=== PATIENT | female | born 1950 | race Caucasian/White ===

== ENCOUNTER 2022-08-02 16:37 | Emergency (ER) | payer OTHER, MEDICARE ==
[2022-08-02 17:07] VITALS: BP 130/70; PULSE 68; RESP 20; BMI 27.4
[2022-08-02] MEDS ORDERED: SODIUM CHLORIDE 0.9% 500 ML INFUS.BAG IV ONE (17:12)
[2022-08-02 18:02] LABS: BASO % 0.5 % (0-2.0); EOS % 0.4 % (0-4.5); HEMATOCRIT 45.7 % (32.4-45.2); HEMOGLOBIN 15.3 GM/dL (10.7-15.3); LYMPH % 12.1 % (8-40); MCH 29.5 pg (25.7-33.7); MCHC 33.4 g/dl (32.0-36.0); MEAN CELL VOLUME 88.2 fl (80-96); MEAN PLT VOLUME 9.3 fl (7.5-11.1); MONO % 8.6 % (3.8-10.2); NEUT % 78.4 % (42.8-82.8); PLATELET COUNT 316 10^3/uL (134-434); RBC 5.18 M/mm3 (3.60-5.2); RDW 12.9 % (11.6-15.6)
[2022-08-02 18:23] LABS: CALCIUM 9.9 mg/dL (8.5-10.1)
[2022-08-02 18:24] LABS: ALBUMIN 4.5 g/dl (3.4-5.0); MAGNESIUM 2.2 mg/dL (1.8-2.4)
[2022-08-02 18:27] LABS: CREATININE 1.7 mg/dL (0.55-1.3)
[2022-08-02 18:29] LABS: BILIRUBIN,TOTAL 0.9 mg/dL (0.2-1); TOT PROT 7.5 g/dl (6.4-8.2)
[2022-08-02 21:49] LABS: BLOOD UREA NITROGEN 19.4 mg/dL (7-18)
[2022-08-02 21:52] LABS: CREATININE 1.3 mg/dL (0.55-1.3)
== END 2022-08-02 22:27 | disposition home or self-care (01) ==
LOC: JER 16:37 → SUPCPDRO 16:37 → JER 22:27
DX: N17.9 Acute kidney failure, unspecified (principal); R55 Syncope and collapse
CPT/HCPCS: 0241U-QW; 36415; 70450-TC; 71045-TC-FY; 80048; 80053; 83735; 84484; 85025; 93005; 93010; 99285-25

== ENCOUNTER → 2023-02-13 | Day surgery (SDC) | payer OTHER, MEDICARE | END | disposition home or self-care (01) | LOC: JRADIR 09:03 | PROVIDERS: ATTEND Internal Medicine Endocrinology, Diabetes & Metabolism | PROC: 0G9G3ZX Drainage of Left Thyroid Gland Lobe, Percutaneous Approach, Diagnostic (ICD-10-PCS; principal; 2023-02-13) | DX: E04.1 Nontoxic single thyroid nodule (principal) | CPT/HCPCS: 10005; 76942; 88173; 88305-TC ==